=== PATIENT | female | born 2000 | race Caucasian/White ===

== ENCOUNTER 2019-04-24 18:25 | Emergency (ER) | payer SELFPAY ==
[~2019-04-24] VITALS: Ht 154.9 cm; Wt 57.7 kg
[2019-04-24] MEDS ORDERED: LORTAB 1010 MG PO (21:31)
[2019-04-24 21:38] VITALS: BP 130/85
== END 2019-04-24 21:38 | disposition home or self-care (01) | DRG 563 ==
LOC: ED 18:25
PROC: 0PSHXZZ Reposition Right Radius, External Approach (ICD-10-PCS; principal; 2019-04-24)
DX: S52.501A Unspecified fracture of the lower end of right radius, initial encounter for closed fracture (principal); W16.612A Jumping or diving into natural body of water striking water surface causing other injury, initial encounter; Y93.11 Activity, swimming; Y92.828 Other wilderness area as the place of occurrence of the external cause